=== PATIENT | male | born 1970 | race Caucasian/White ===

== ENCOUNTER 2016-12-05 02:01 | Emergency (ER) | payer BC, OTHER ==
[~2016-12-05] VITALS: Ht 172.7 cm; Wt 150.0 kg
[2016-12-05 02:06] VITALS: BP 155/96; PULSE 90; TEMP 36.7; O2SAT 97; Ht 172.7 cm; Wt 150.0 kg
--- NOTE | 2016-12-05 05:59 | EMERGENCY ROOM VISIT NOTE ---
History First contact with patient: 02:10 Chief Complaint: LACERATION/CUT (SUT/DERMABOND) Stated Complaint: STITCHES BLEEDING Nursing Triage Summary: R knee bleeding s/p staple removal. History of Present Illness The patient is a 46 year old male who presents to the Emergency Room with complaints of bleeding from his right knee that started about 10 minutes prior to arrival. The patient had a right total knee replacement performed in [place] 2 weeks ago. He had his stitches removed today with his orthopedist, and had been doing well up to this point. The patient is at this facility because his father is currently in the ICU. While the patient was visiting his father he noticed there was blood going down his right leg. The patient looked at his incision and noticed there was blood coming from over his kneecap. The patient does not report any injury or trauma. No significant pain. He does not have gauze or dressing material here and was not sure what else to do. He rates his discomfort a 0/10. He is not currently on blood thinners. Review of Systems More than 10 systems were reviewed and otherwise negative with the exception of history of present illness. Past Medical/Surgical History No pertinent chronic medical disease Family History No pertinent family history Social History Smoking Status: Former Smoker Current/Historical Medications Unable to Obtain Active Prescriptions or Reported Meds Physical Exam Vital Signs Date Time Temp Pulse Resp B/P (MAP) Pulse Ox O2 Delivery O2 Flow Rate FiO2 12/05/16 02:06 36.7 90 16 155/96 97 Room Air Pain Rating (0-10): 0 Physical Exam VITALS: Vitals are noted on the nurse's note and reviewed by myself. Vital signs stable. GENERAL: Well-developed, well-nourished, white male, who is in no acute distress and resting comfortably. Patient is cooperative with the examination. HEART: Regular rate and rhythm without murmurs gallops or rubs. LUNGS: Clear to auscultation bilaterally without wheezes, rales or rhonchi. No retractions or accessory muscle use. SKIN: The skin was with slow bleeding from a slightly dehisced surgical incision over the right patella. The dehisced area measures approximately 6 mm in length, and this does cause minimal bleeding. There is no evidence of infection. No significant erythema or edema. The remaining incision wound appears well healing with good granulation. Medical Decision & Procedures ED Course Physical exam and history were performed. Nursing notes, EMR, and Medication List were personally reviewed. Patient appears to have bleeding from his right knee that was replaced about 2 weeks ago. The patient is visiting here because his father is currently in the ICU at this facility. On examination the patient appears well otherwise. The wound was cleansed and dressed. A pressure dressing was applied as well as a bulky Reinaldo wrap. We did put ice packs over the knee as well. The patient was monitored for greater than an hour and did have essentially full resolution of his symptoms. The patient will need to follow with his surgeon regarding the incision. I recommended the patient not bend the knee as this will likely cause worsening of his symptoms. The Reinaldo wrap will help prevent this. I will also give him crutches to assist with ambulation. The patient was otherwise invited back to the ER with any new, worsening, or concerning symptoms. The chart was completed utilizing [employer] Voice Recognition Software. Grammatical errors, random word insertions, pronoun errors, and incomplete sentences are an occasional consequence of this system due to software limitations, ambient noise, and hardware issues. Any formal questions or concerns about the content, text, or information contained within the body of this dictation should be directly addressed to the provider for clarification. . Medical Decision Differential diagnosis includes, but is not limited to: Wound dehiscence, infection, abscess, surgical bleeding, and others Impression Primary Impression: Wound dehiscence Departure Information Dispostion Home / Self-Care Condition FAIR Prescriptions Unable to Obtain Active Prescriptions or Reported Meds Referrals Gus Simmons M.D. (PCP) No Doctor, Assigned Forms HOME CARE DOCUMENTATION FORM, IMPORTANT VISIT INFORMATION Patient Instructions My [facility] Additional Instructions You were seen and evaluated today on an emergency basis only. This is not a substitute for, or an effort to provide, complete comprehensive medical care. It is not possible to recognize and treat all injuries or illnesses in a single emergency department visit. For this reason it is recommended that you followup with your surgeon as soon as possible for recheck of your wound. Keep your knee straight. Use your crutches for ambulation. Change the dressing regularly. You are welcome to return to the emergency department anytime with new, worsening, or concerning symptoms.
== END 2016-12-05 03:23 | disposition home or self-care (01) ==
LOC: C.EDB 02:02 → C.EDA 03:23
DX: T81.30XA Disruption of wound, unspecified, initial encounter (principal); Y84.9 Medical procedure, unspecified as the cause of abnormal reaction of the patient, or of later complication, without mention of misadventure at the time of the procedure; Z87.891 Personal history of nicotine dependence